=== PATIENT | female | born 1995 | race Caucasian/White ===

== ENCOUNTER 2017-02-08 04:28 | Inpatient (IN) | payer OTHER ==
[~2017-02-08] VITALS: Ht 160 cm; Wt 80.2 kg
[~2017-02-08 04:28] MED LIST: PREN1TAB49 PO
[2017-02-08 04:41] VITALS: BP 114/60; PULSE 90; RESP 18
[2017-02-08] MEDS ORDERED: OXYTOCIN 30 UNITS/LR 500 ML IV SCH ×2 (05:00)
[2017-02-08] MEDS ORDERED: LIDOCAINE 1% (MPF) 30 ML INJ INJ PRN (05:00)
[2017-02-08] MEDS ORDERED: IBUPROFEN 600 MG TAB PO PRN (05:00)
[2017-02-08] MEDS ORDERED: OXYTOCIN 30 UNITS/LR 500 ML IV PRN (05:00)
[2017-02-08] MEDS ORDERED: CARBOPROST 250 MCG INJ IM PRN (05:00)
[2017-02-08] MEDS ORDERED: BUTORPHANOL 2 MG INJ IV PRN (05:00)
[2017-02-08] MEDS ORDERED: METHYLERGONOVINE 0.2 MG INJ IM PRN (05:00)
[2017-02-08] MEDS ORDERED: MISOPROSTOL 200 MCG TAB PR PRN (05:00)
--- NOTE | 2017-02-08 05:13 | TRIAGE ---
OB Triage Datetime Report Generated by CPN: 02/08/2017 05:13 Datetime: 02/08/2017 04:54 Stage of : OB Triage Datetime: 02/08/2017 04:47 Stage of : OB Triage Labor Evaluation Frequency: 2-3 Monitor Mode: External Duration (sec)2399: 60 Quality: Moderate Pattern: Normal: <= 5 Contractions in 10 Minutes Resting [place] View: Relaxed Heart Rate FHR Baseline Rate: 150 Monitor Mode: External US FHR Baseline Changes: No Baseline Change Variability: Moderate 6-25 bpm Accelerations: 15X15 Decelerations: None Category: Category I Vaginal Exam Dilatation (cms): 3.0 Effacement (%): 80 Station: -2 Exam By: Raven Gaston Membrane Status: Intact Vaginal Bleeding: Scant Cervix, Consistency: Soft Cervix, Position: Posterior Presentation 'A': Cephalic Datetime: 02/08/2017 04:34 Time of Arrival: 02/08/2017 04:17 EGA: 37.1 Arrived By: Wheelchair Arrived From: Home Chief Complaint: [id number] w/ c/o ucs. Senies hx problems this . No PNR available Movement: Present Contractions: Regular Time Contractions Began: 02/08/2017 01:30 Contractions: Q2 Rupture of Membranes: Denies Vaginal Bleeding: None Vaginal Discharge: Denies Recent Sexual Intercouse: Denies Abdominal Trauma: Not Applicable Patient Complaints: Contractions Time Provider Notified: 02/08/2017 04:54 Provider Notified: Dr Dangelo Initial Plan: EFM, SVE Datetime: 02/08/2017 04:29 Stage of : OB Triage Maternal Assessment Level of Consciousness: Fully Conscious Headache: Denies Blurred Vision: No Respiratory Effort: Unlabored Nausea/Vomiting: Denies RUQ Epigastric Pain: Denies Facial Edema: None Labor Evaluation Frequency: placed Monitor Mode: External Resting [place] View: Relaxed Monitor Mode: External US Comments: FHT 160 Comments: FHT Pain Assessment Pain Scale: 6 Pain Presence: Intermittent Pain Type: Contraction Pain Location: Abdomen
[2017-02-08] MEDS ORDERED: LACTATED RINGER'S 1,000 ML IV PRN (05:30)
[2017-02-08] MEDS: LACTATED RINGER'S 1,000 ML IV SCH ×3 (05:50→21:57)
[2017-02-08 06:05] LABS: ADD SCAN DIFF NO
[2017-02-08 06:32] LABS: BASOPHILS % 0.2 % (0.0-2.0); EOSINOPHILS % 0.3 % (0.0-7.0); HEMATOCRIT 33.6 % (37.0-47.0); HEMOGLOBIN 11.3 g/dl (12.0-16.0); INR 0.89; LYMPHOCYTES # 2.3 10^3/ul (0.8-2.9); LYMPHOCYTES % 18.6 % (15.0-51.0); MEAN CORPUSCULAR HEMOGLOBIN 29.7 pg (29.0-33.0); MEAN CORPUSCULAR HGB CONC 33.6 g/dl (32.0-37.0); MEAN CORPUSCULAR VOLUME 88.2 fl (82.0-101.0); MONOCYTE # 0.7 10^3/ul (0.3-0.9); MONOCYTES % 5.9 % (0.0-11.0); NEUTROPHIL # 9.3 10^3/ul (1.6-7.5); NEUTROPHILS % 74.1 % (39.0-77.0); PLATELET COUNT 288 10^3/UL (140-415); PT RATIO 0.9; RED BLOOD COUNT 3.81 10^6/ul (4.20-5.40); RED CELL DISTRIBUTION WIDTH 13.3 % (11.5-14.5); WHITE BLOOD COUNT 12.6 10^3/ul (4.8-10.8)
[2017-02-08 06:33] LABS: PARTIAL THROMBOPLASTIN TIME 28.7 Sec (25.0-35.0)
--- NOTE | 2017-02-08 18:07 | QN ---
Documentation Comment iup 37 weeks early labor 3cm irregular contractions cat I tracing vss exam wnl a/p iup 37 weeks early labor expectant managment ENMANUEL KATZ MD February 08, 2017 18:07
--- NOTE | 2017-02-08 22:46 | PD.PPDC ---
JEWELRY MANAGER Discharge Instruction Diagnosis Final Diagnosis: Latent Labor Condition Patient Condition: Good Diet Diet: Resume Regular Diet Activity/Restrictions Activity: Normal Activity Follow-up Follow-up with Physician: 1, Week/Weeks Return to clinic for [facility] [employer] Instructions: Fever greater than 101 Chills Worsening abdominal pain Excessive Vaginal Bleeding More than 2 pads per hour Unable to tolerate diet OB Instructions: Breast Tenderness Depression Blurried Vision Headache MASSIMO ARZATE MD February 08, 2017 22:46
--- NOTE | 2017-02-08 22:50 | DS ---
Date/Time of Note Date/Time of Note DATE: 02/08/17 TIME: 22:46 Obstetrical Discharge Record Final Diagnosis Final Diagnosis: Term not delivered Other Final Diagnosis 37+1 wks GA, stable cervical exam Complications Augmentation: No Induction: No Rupture of Membranes: No Condition on Discharge Physical Assessment Last Vitals: BP 98.6 106/54 74 FHT: 120s, mod luna, +accels, no decels Abercrombie: Rare UCs SVE /40/-3 by same examiner, unchanged x2 (2hrs apart) Patient Condition: Good MASSIMO ARZATE MD February 08, 2017 22:50
--- NOTE | 2017-02-08 22:58 | QN ---
Documentation Comment On-Call Laborist In to see patient at 10/16 Primary MD (Dr. Dangelo) request for laborist evaluation of pt and possible d/c home given lack of cervical progression over the course of the day. Pt stated contractions have spaced considerably and now are mild. Prior exams today noted 3cm, however were by different examiners than one below which was done twice by this personal lines underwriter. Vitals as on D/C summary FHT reviewed and Category 1. SVE at 1999/-3/med/posterior. Exam repeated by same provider at 0 and unchanged. Given patient report of fast labor with first , offered pt continued expectant management of labor until tomorrow AM. Pt declined continued observation and requested d/c home, which seems appropriate. Pt has next clinic appt with Dr. Dangelo on 02/11/17. Labor, ROM and FKC precautions reviewed. Questions answered to patient's satisfaction. MASSIMO ARZATE MD February 08, 2017 22:58
== END 2017-02-08 22:50 | disposition home or self-care (01) | DRG 780 ==
LOC: OBT 04:28 → L-D 04:29 → OBT 05:03 → L-D 05:04
PROVIDERS: ADMIT Specialist; ATTEND Specialist
DX: O47.1 False labor at or after 37 completed weeks of gestation (principal); Z3A.37 37 weeks gestation of pregnancy
CPT/HCPCS: 85025; 85610; 85730; 86592; 86900; 86901; G0463; J7120

== ENCOUNTER 2017-03-02 05:00 | Inpatient (IN) | payer OTHER ==
[~2017-03-02] VITALS: Ht 160 cm; Wt 81.4 kg
[2017-03-02 19:48] VITALS: Ht 160 cm; Wt 81.4 kg
[2017-03-02 19:49] VITALS: BP 115/60; PULSE 77; RESP 18
[2017-03-02] MEDS ORDERED: METHYLERGONOVINE 0.2 MG INJ IM PRN (20:00)
[2017-03-02] MEDS ORDERED: MISOPROSTOL 200 MCG TAB PR PRN (20:00)
[2017-03-02] MEDS ORDERED: OXYTOCIN 30 UNITS/LR 500 ML IV PRN (20:00)
[2017-03-02] MEDS ORDERED: LACTATED RINGER'S 1,000 ML IV PRN (20:00)
[2017-03-02] MEDS ORDERED: OXYTOCIN 30 UNITS/LR 500 ML IV SCH ×3 (20:00→21:00)
[2017-03-02] MEDS ORDERED: BUTORPHANOL 2 MG INJ IV PRN (20:00)
[2017-03-02] MEDS ORDERED: CARBOPROST 250 MCG INJ IM PRN (20:00)
[2017-03-02] MEDS ORDERED: LIDOCAINE 1% (MPF) 30 ML INJ INJ PRN (20:00)
[2017-03-02] MEDS: LACTATED RINGER'S 1,000 ML IV SCH (20:12)
[2017-03-02 20:24] LABS: ADD SCAN DIFF NO
[2017-03-02 20:27] LABS: BASOPHILS % 0.1 % (0.0-2.0); EOSINOPHILS % 0.1 % (0.0-7.0); HEMATOCRIT 33.8 % (37.0-47.0); LYMPHOCYTES # 2.1 10^3/ul (0.8-2.9); LYMPHOCYTES % 16.8 % (15.0-51.0); MEAN CORPUSCULAR HEMOGLOBIN 28.2 pg (29.0-33.0); MEAN CORPUSCULAR HGB CONC 32.5 g/dl (32.0-37.0); MEAN CORPUSCULAR VOLUME 86.7 fl (82.0-101.0); MEAN PLATELET VOLUME 10.2 fl (7.4-10.4); MONOCYTE # 0.7 10^3/ul (0.3-0.9); MONOCYTES % 5.4 % (0.0-11.0); NEUTROPHIL # 9.5 10^3/ul (1.6-7.5); PLATELET COUNT 259 10^3/UL (140-415); RED CELL DISTRIBUTION WIDTH 14.6 % (11.5-14.5); WHITE BLOOD COUNT 12.3 10^3/ul (4.8-10.8)
[2017-03-02 20:57] LABS: INR 0.92; PROTIME 12.4 Sec (12.2-14.2)
[2017-03-02 20:58] LABS: PARTIAL THROMBOPLASTIN TIME 29.5 Sec (25.0-35.0)
[2017-03-02 21:33] LABS: ADD UMIC YES; UR BILIRUBIN (Dip) NEGATIVE (NEGATIVE); UR BLOOD (Dip) TRACE (NEGATIVE); UR CLARITY CLEAR (CLEAR); UR COLOR YELLOW (YELLOW); UR GLUCOSE (Dip) NEGATIVE (NEGATIVE); UR KETONES (Dip) NEGATIVE (NEGATIVE); UR LEUKOCYTE ESTERASE (Dip) 1+ (NEGATIVE); UR NITRITE (Dip) NEGATIVE (NEGATIVE); UR TOTAL PROTEIN (Dip) TRACE (NEGATIVE); UR UROBILINOGEN (Dip) 1.0 E.U./dL (0.1-1.0)
[2017-03-02 21:50] LABS: UR BACTERIA RARE; UR SQUAMOUS EPITHELIAL CELL MODERATE; URINE RBCS 0-2 /HPF (0)
[2017-03-03] MEDS: LACTATED RINGER'S 1,000 ML IV SCH (03:46)
--- NOTE | 2017-03-03 07:32 | LDN ---
Date/Time of Note Date/Time of Note DATE: 03/03/17 TIME: 07:31 Delivery Summary 1st degree vaginal laceration Placenta Delivered: Spontaneously Meconium: none Episiotomy: No Anesthesia type: Local Estimated blood loss: 200 Sponge & Needle done & correct: Yes All needle counts correct: Yes Any foreign bodies felt in the: No Problems: Infant Delivery Information Sex Sex: female Apgars 1 Minute: 9 5 Minute: 9 Suctioning Nose & mouth suctioned at imani: Yes Delee suction performed: Yes Umbilical Cord Umbilical cord with: 3 Vessels Cord presentations: no nuchal cord Cord Blood was obtained: Yes Mother & Baby Disposition Disposition Mom & Baby to Maternity; Good: Yes Baby to NICU: No KARIN FONSECA M.D. Mar 03, 2017 07:32
--- NOTE | 2017-03-03 07:35 | HP ---
Date/Time of Note Date/Time of Note DATE: 03/03/17 TIME: 07:34 OB - History Hx of Present Free Text/Dictation @40+3 wks GA postdate for induction : 3 Para: 1 Care: Good Care Obstetrical Complications: None Past Family/Social History * Past Medical, Surgical, Family and Obstetric Histories reviewed from chart. OB Admission Exam Vital Signs Vital Signs Vital Signs Date Time Temp Pulse Resp B/P Pulse Ox O2 Delivery O2 Flow Rate FiO2 03/02/17 19:49 98.2 77 18 115/60 Room Air Physical Exam Abdomen: WNL Extremities: Normal Heart Rate: 140's Accelerations: Accelerations Present Decelerations: No Decelerations Varibility: Moderate Last 72 hours Lab Results CBC & BMP 03/02/17 20:20 OB Assessment/Plan Reason for admission: induction of labor Plan: Induction KARIN FONSECA M.D. Mar 03, 2017 07:35
[2017-03-03] MEDS: LACTATED RINGER'S 1,000 ML IV* SCH ×6 (07:52→23:52)
--- NOTE | 2017-03-03 07:52 | PN ---
Date/Time of Note Date/Time of Note DATE: 03/03/17 TIME: 07:50 OB Subjective Subjective Subjective patient pushed out of control and delivered baby while I was driving to hospital. Laborist attended . I spoke to Dr. Valerio and thanked him. Spoke to Mom. Mom and baby are fine. LILY REILLY MD Mar 03, 2017 07:52
[2017-03-03] MEDS ORDERED: OXYTOCIN 30 UNITS/LR 500 ML IV PRN ×2 (08:00)
[2017-03-03] MEDS ORDERED: CARBOPROST 250 MCG INJ IM PRN ×2 (08:00)
[2017-03-03] MEDS ORDERED: SENNA/DOCUSATE NA (8.6MG/50MG) TAB PO PRN (08:00)
[2017-03-03] MEDS ORDERED: OXYCODONE/ASPIRIN (4.88/325) TAB PO PRN (08:00)
[2017-03-03] MEDS ORDERED: ZOLPIDEM 5 MG TAB PO PRN (08:00)
[2017-03-03] MEDS ORDERED: DIPHENHYDRAMINE 50 MG INJ IV PRN (08:00)
[2017-03-03] MEDS ORDERED: ACETAMINOPHEN/CODEINE #3 TAB PO PRN ×2 (08:00)
[2017-03-03] MEDS ORDERED: MAGNESIUM HYDROXIDE 30ML CUP PO PRN (08:00)
[2017-03-03] MEDS ORDERED: ONDANSETRON 4 MG INJ IV PRN (08:00)
[2017-03-03] MEDS ORDERED: MISOPROSTOL 200 MCG TAB PR PRN ×2 (08:00)
[2017-03-03] MEDS ORDERED: METHYLERGONOVINE 0.2 MG INJ IM PRN (08:00)
[2017-03-03] MEDS ORDERED: LANOLIN 7 GM TUBE TOP PRN ×2 (08:00)
[2017-03-03] MEDS ORDERED: ONDANSETRON 4 MG TAB PO PRN (08:00)
[2017-03-03] MEDS ORDERED: NA PHOSPHATE/BIPHOS 133 ML ENEMA PR PRN (08:00)
[2017-03-03] MEDS ORDERED: DIPHENHYDRAMINE 25 MG CAP PO PRN (08:00)
[2017-03-03] MEDS ORDERED: IBUPROFEN 600 MG TAB PO SCH (08:05)
[2017-03-03] MEDS: SENNA/DOCUSATE NA (8.6MG/50MG) TAB PO SCH ×2 (09:00→21:00)
[2017-03-03 09:10] VITALS: BP 119/56; PULSE 65; RESP 17
[2017-03-03] MEDS: BENZOCAINE 20% 56 ML SPRAY TOP PRN (10:40)
[2017-03-03] MEDS: DIBUCAINE 1% 30 GM OINT TOP PRN (10:40)
[2017-03-03] MEDS: WITCH HAZEL/GLYCERIN PAD PR PRN (10:40)
[2017-03-03] MEDS: IBUPROFEN 600 MG TAB PO SCH ×2 (11:20→18:17)
[2017-03-03 12:00] VITALS: BP 111/54; PULSE 70; RESP 18
[2017-03-03 15:50] VITALS: BP 120/67; PULSE 79; RESP 19
[2017-03-03 20:10] VITALS: BP 102/68; PULSE 70; RESP 18
[2017-03-03] MEDS ORDERED: CEPHALEXIN 500 MG CAP PO SCH (21:30)
[2017-03-04 00:40] VITALS: BP 110/64; PULSE 72; RESP 19
[2017-03-04 04:15] VITALS: BP 100/62; PULSE 72; RESP 18
[2017-03-04] MEDS: IBUPROFEN 600 MG TAB PO SCH ×5 (06:00→23:29)
[2017-03-04] MEDS: LACTATED RINGER'S 1,000 ML IV* SCH ×4 (07:52→15:52)
[2017-03-04 08:12] LABS: ADD SCAN DIFF NO
[2017-03-04 08:20] VITALS: BP 106/51; PULSE 67; RESP 17
[2017-03-04 08:21] LABS: BASOPHILS % 0.3 % (0.0-2.0); EOSINOPHILS # 0.1 10^3/ul (0.0-0.5); EOSINOPHILS % 0.3 % (0.0-7.0); HEMATOCRIT 34.1 % (37.0-47.0); HEMOGLOBIN 11.1 g/dl (12.0-16.0); LYMPHOCYTES # 3.9 10^3/ul (0.8-2.9); LYMPHOCYTES % 25.3 % (15.0-51.0); MEAN CORPUSCULAR HEMOGLOBIN 28.8 pg (29.0-33.0); MEAN CORPUSCULAR HGB CONC 32.6 g/dl (32.0-37.0); MEAN CORPUSCULAR VOLUME 88.3 fl (82.0-101.0); MEAN PLATELET VOLUME 10.5 fl (7.4-10.4); MONOCYTE # 0.9 10^3/ul (0.3-0.9); MONOCYTES % 6.2 % (0.0-11.0); NEUTROPHIL # 10.2 10^3/ul (1.6-7.5); PLATELET COUNT 288 10^3/UL (140-415); RED BLOOD COUNT 3.86 10^6/ul (4.20-5.40); RED CELL DISTRIBUTION WIDTH 14.5 % (11.5-14.5); WHITE BLOOD COUNT 15.2 10^3/ul (4.8-10.8)
[2017-03-04] MEDS: SENNA/DOCUSATE NA (8.6MG/50MG) TAB PO SCH ×2 (09:38→23:29)
[2017-03-04] MEDS: DIBUCAINE 1% 30 GM OINT TOP PRN (09:38)
[2017-03-04 16:22] VITALS: BP 112/64; PULSE 72; RESP 17
[2017-03-04 19:45] VITALS: BP 104/67; PULSE 74; RESP 20
[2017-03-05 04:06] VITALS: BP 111/66; PULSE 74; RESP 18
[2017-03-05] MEDS: IBUPROFEN 600 MG TAB PO SCH (05:36)
[2017-03-05 08:00] VITALS: BP 116/73; PULSE 66; RESP 18
--- NOTE | 2017-03-05 08:02 | DS ---
Date/Time of Note Date/Time of Note DATE: 03/05/17 TIME: 08:01 Obstetrical Discharge Record Final Diagnosis Final Diagnosis: Term delivered Vaginal Delivery Obstetrical Delivery: Spontaneous Complications Augmentation: No Induction: No Rupture of Membranes: No Condition on Discharge Physical Assessment Voiding: Yes Bowel Movement: Yes Breast: Soft, non-tender, Filling Fundus: Firm Calf Tenderness: No Patient Condition: Good LILY REILLY MD Mar 05, 2017 08:02
[2017-03-05] MEDS ORDERED: VARICELLA VACCINE LIVE/PF 1,350 UNIT/0.5 ML ML SC* ONE (09:00)
[2017-03-05] MEDS ORDERED: DIPHTH/TET/ACEL PERTUSS (ADULT) 0.5 ML VIAL IM* ONE ×2 (09:00)
[2017-03-05] MEDS: SENNA/DOCUSATE NA (8.6MG/50MG) TAB PO SCH (09:00)
[2017-03-05] MEDS ORDERED: MEASLES,MUMPS,RUBELLA VACCINE INJ SC* ONE (09:00)
[2017-03-05] MEDS: BENZOCAINE 20% 56 ML SPRAY TOP PRN (11:36)
[2017-03-05] MEDS: WITCH HAZEL/GLYCERIN PAD PR PRN (11:36)
[2017-03-05] MEDS: DIBUCAINE 1% 30 GM OINT TOP PRN (11:36)
== END 2017-03-05 11:46 | disposition home or self-care (01) | DRG 775 ==
LOC: L-D 18:20 → PP1 03-03 10:04
PROVIDERS: ADMIT Specialist; ATTEND Specialist
PROC: 10E0XZZ Delivery of Products of Conception, External Approach (ICD-10-PCS; principal; 2017-03-03)
PROC: 3E033VJ Introduction of Other Hormone into Peripheral Vein, Percutaneous Approach (ICD-10-PCS; 2017-03-03)
PROC: 0HQ9XZZ Repair Perineum Skin, External Approach (ICD-10-PCS; 2017-03-03)
DX: O48.0 Post-term pregnancy (principal); Z37.0 Single live birth; Z3A.40 40 weeks gestation of pregnancy
CPT/HCPCS: 81001; 85025; 85610; 85730; 86592; 86900; 86901; 90715; 90716; J2590; J7120

== ENCOUNTER 2018-05-27 11:24 | Day surgery (SDC) | END 2018-05-27 18:37 | disposition home or self-care (01) ==